=== PATIENT | female | born 1950 | race Caucasian/White ===

== ENCOUNTER 2016-11-07 16:19 | Outpatient (CLI) | payer BC | END 2016-11-07 17:36 | LOC: D.MAMMO 16:19 | DX: Z12.31 Encounter for screening mammogram for malignant neoplasm of breast (principal) ==

== ENCOUNTER → 2016-12-30 08:58 | Outpatient (CLI) | payer BC | LOC: D.MRI 08:58 | DX: M43.6 Torticollis (principal) ==

== ENCOUNTER 2017-11-10 08:00 | Outpatient (CLI) | payer BC | END 2017-11-10 09:00 | disposition home or self-care (01) | LOC: D.MAMMO 08:00 | DX: Z12.31 Encounter for screening mammogram for malignant neoplasm of breast (principal) ==

== ENCOUNTER 2018-11-24 10:00 | Outpatient (CLI) | payer BC | END 2018-11-24 11:00 | disposition home or self-care (01) | LOC: D.MAMMO 10:00 | PROVIDERS: ATTEND Family Medicine | DX: Z12.31 Encounter for screening mammogram for malignant neoplasm of breast (principal) ==